=== PATIENT | female | born 1945 | race Caucasian/White ===

== ENCOUNTER 2020-12-16 10:26 | Emergency (ER) | payer MEDICARE, MEDICAID ==
[~2020-12-16] VITALS: Ht 160 cm; Wt 96.6 kg
--- NOTE | 2020-12-16 10:29 | NUR ---
TO ER BED 4, C/O RT WRIST REDNESS DUE TO A FALL WHILE WALKING ON THE STREET, AT BEDSIDE FOR EVAL
[2020-12-16] MEDS ORDERED: IBUPROFEN 600 MG TABLET ONE (10:38)
--- NOTE | 2020-12-16 10:38 | NUR ---
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
[2020-12-16] MEDS ORDERED: IBUPROFEN 600 MG TABLET PO ONE (11:00)
[2020-12-16] MEDS ORDERED: IBUP-1953 PO (11:21)
[2020-12-16 11:33] VITALS: BP 130/90
== END 2020-12-16 11:33 | disposition home or self-care (01) ==
LOC: ER 10:28
DX: S60.211A Contusion of right wrist, initial encounter (principal); W18.39XA Other fall on same level, initial encounter; Y93.01 Activity, walking, marching and hiking; Y92.89 Other specified places as the place of occurrence of the external cause; Y99.8 Other external cause status
CPT/HCPCS: 73110; 73130-TC

== ENCOUNTER 2024-04-14 13:51 | Emergency (ER) | payer MEDICARE, OTHER ==
[~2024-04-14] VITALS: Ht 154.9 cm; Wt 86.2 kg
[~2024-04-14 13:51] MED LIST: IBUP-1953 PO
[2024-04-14 14:45] LABS: APPEARANCE,URINE TURBID (CLEAR); BILIRUBIN,URINE 1+ (NEGATIVE); BLOOD, URINE 3+ Ery/uL (NEGATIVE); COLOR,URINE RED (YELLOW); KETONES,URINE NEGATIVE (NEGATIVE); LEUKOCYTE ESTERASE ,URINE 2+ (NEGATIVE); NITRITE, URINE NEGATIVE (NEGATIVE); PROTEIN,URINE 2+ mg/dl (NEGATIVE); UGLUCOSE NEGATIVE (NEGATIVE); UROBILINOGEN,URINE 0.2 EU/dL (0.2)
[2024-04-14 14:51] VITALS: BP 125/80; TEMP 98.1; O2SAT 99
[2024-04-14 14:55] LABS: ADD URINE CULTURE YES; BACTERIA,URINE 1+ /HPF (None Seen); RBC,URINE 81-100 /HPF (0-2); WBC,URINE 51-80 /HPF (0-3)
[2024-04-14 14:56] LABS: SQUAMOUS EPITHELIAL CELL,UR 0-2 /HPF (None Seen)
[2024-04-14 15:40] LABS: CALCIUM, SERUM 9.1 mg/dL (8.5-10.1)
[2024-04-14 15:50] LABS: BASOPHILS # (AUTO) 0.1 K/uL (0.0-0.2); BASOPHILS % (AUTO) 1.1 % (0.0-2.0); EOSINOPHILS # (AUTO) 0.1 K/uL (0.0-0.7); HEMATOCRIT 39 % (33-45); HEMOGLOBIN 13.4 g/dL (11.5-14.8); LYMPHOCYTES # (AUTO) 2.2 K/uL (0.8-4.8); LYMPHOCYTES % (AUTO) 28.1 % (20.0-44.0); MEAN CORPUSCULAR HEMOGLOBIN 32 PG (26.0-33.0); MEAN CORPUSCULAR HGB CONC 35 g/dl (31.0-36.0); MEAN CORPUSCULAR VOLUME 92 fL (82-100); MONOCYTES # (AUTO) 0.7 K/uL (0.1-1.30); NEUTROPHILS # (AUTO) 4.7 K/uL (1.8-8.9); NEUTROPHILS % (AUTO) 60.8 % (43.0-81.0); PLATELET COUNT (AUTO) 206 K/uL (150-450); RED BLOOD CELL COUNT(AUTO) 4.22 MIL/uL (4.0-5.2); RED CELL DISTRIBUTION WIDTH 13.6 % (11.5-15.0); WHITE BLOOD COUNT (AUTO) 7.8 K/uL (4.3-11.0)
[2024-04-14] MEDS ORDERED: CEPH-570 PO (16:15)
== END 2024-04-14 16:24 | disposition home or self-care (01) ==
LOC: ER 14:00
DX: N39.0 Urinary tract infection, site not specified (principal); I10 Essential (primary) hypertension; J45.909 Unspecified asthma, uncomplicated
CPT/HCPCS: 36415; 80048-TC; 81001; 85025-TC; 87086-TC